=== PATIENT | male | born 1995 | race Native Hawaiian/Other Pacific Islander ===

== ENCOUNTER 2016-12-11 17:25 | Emergency (ER) | payer SELFPAY ==
[~2016-12-11] VITALS: Ht 165.1 cm; Wt 59.0 kg
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
--- NOTE | 2016-12-11 17:43 | NUR ---
KRISTIAN AT BS.
[2016-12-11] MEDS ORDERED: MORPHINE SULFATE INJ 4 MG/ML DISP.SYRIN ONE (17:44)
[2016-12-11] MEDS ORDERED: ONDANSETRON HCL/PF 4 MG/2 ML VIAL ONE (17:45)
[2016-12-11] MEDS ORDERED: IBUPROFEN 600 MG TABLET PO ONE ×2 (17:56→18:00)
[2016-12-11] MEDS ORDERED: MORPHINE SULFATE INJ 2 MG/ML DISP.SYRIN IV ONE (18:00)
[2016-12-11] MEDS ORDERED: ONDANSETRON HCL/PF 4 MG/2 ML VIAL IVP ONE (18:00)
[2016-12-11] MEDS ORDERED: FENTANYL PF 100MCG/2ML AMPUL ONE (18:25)
[2016-12-11] MEDS ORDERED: FENTANYL PF 100MCG/2ML AMPUL IV ONE (18:30)
[2016-12-11] MEDS ORDERED: LIDOCAINE HCL/PF 1% 30 ML VIAL TP ONE (18:30)
[2016-12-11 18:49] VITALS: BP 129/67
--- NOTE | 2016-12-11 18:58 | NUR ---
IV removed. Catheter intact and site benign. Pressure and 4x4 applied to site. No bleeding noted.Patient discharged to home in stable condition. Written and verbal after care instructions given. Patient verbalizes understanding of instruction. Pt ambulatory with a steady gait.
== END 2016-12-11 18:50 | disposition home or self-care (01) ==
LOC: ER 17:27
DX: S52.591A Other fractures of lower end of right radius, initial encounter for closed fracture (principal); V43.52XA Car driver injured in collision with other type car in traffic accident, initial encounter; Y93.89 Activity, other specified; Y92.89 Other specified places as the place of occurrence of the external cause; Y99.8 Other external cause status
CPT/HCPCS: 73110; A4606; A6402; J2270; J2405; J3010; J3490; Z7610